=== PATIENT | male | born 1950 | race Caucasian/White ===

== ENCOUNTER 2016-08-14 11:56 | Outpatient (CLI) | payer OTHER | END 2016-08-14 11:57 | disposition home or self-care (01) | DRG 554 | LOC: CONVCARE 11:56 | PROVIDERS: ATTEND Orthopaedic Surgery | DX: M16.12 Unilateral primary osteoarthritis, left hip (principal) | CPT/HCPCS: 72170; 73502 ==

== ENCOUNTER → 2016-08-28 | Outpatient (CLI) | payer OTHER | END | disposition home or self-care (01) | DRG 556 | LOC: CONVCARE 11:30 | PROVIDERS: ATTEND Orthopaedic Surgery | DX: M25.552 Pain in left hip (principal) ==

== ENCOUNTER 2016-11-24 07:25 | Day surgery (SDC) | payer OTHER ==
[~2016-11-24 07:25] MED LIST: LIDOCAINE HCL 1% MPF SOL ONE; PROPOFOL 500 MG/50 ML EMU IV ONE
[2016-11-24 08:52] VITALS: TEMP 96.7
[2016-11-24 09:26] VITALS: BP 132/75; PULSE 69; RESP 18; O2SAT 100
== END 2016-11-24 09:34 | disposition home or self-care (01) | DRG 951 ==
LOC: SURG 07:25
PROVIDERS: ATTEND Surgery
DX: Z12.11 Encounter for screening for malignant neoplasm of colon (principal); K92.1 Melena; K57.30 Diverticulosis of large intestine without perforation or abscess without bleeding
CPT/HCPCS: J2001; J2704

== ENCOUNTER 2016-11-25 06:32 | Day surgery (SDC) | payer OTHER ==
[2016-11-25] MEDS ORDERED: PROPOFOL 500 MG/50 ML EMU IV ONE (06:33)
[2016-11-25] MEDS ORDERED: LIDOCAINE HCL 1% MPF SOL ONE (06:33)
[2016-11-25 09:00] VITALS: BP 174/77; PULSE 66; RESP 20; TEMP 96.8; O2SAT 100
== END 2016-11-25 09:05 | disposition home or self-care (01) | DRG 951 ==
LOC: SURG 06:32
PROVIDERS: ATTEND Surgery
DX: Z12.11 Encounter for screening for malignant neoplasm of colon (principal); D12.5 Benign neoplasm of sigmoid colon; R19.5 Other fecal abnormalities; K57.30 Diverticulosis of large intestine without perforation or abscess without bleeding; K62.1 Rectal polyp
CPT/HCPCS: 82962; J2001; J2704